=== PATIENT | female | born 1990 | race Caucasian/White ===

== ENCOUNTER 2018-02-13 08:19 | Emergency (ER) | payer OTHER ==
[2018-02-13 09:34] LABS: BHCG - Serum Negative (NEGATIVE); Pregs Control Background? CLEAR/WHITE (CLR/WHITE); Pregs Control Bar Appear? YES (CONTROL BAR)
[2018-02-13] MEDS ORDERED: Ketorolac Tromethamine 60 MG/2 ML VIAL ONE (10:00)
--- NOTE | 2018-02-13 10:16 | CT ---
CERVICAL SPINE CT NONCONTRAST: Date: 02/13/18 INDICATION: Post-traumatic pain. FINDINGS: Craniocervical junction is intact. There is no compression fracture or subluxation. No osseous compro mise of vertebral canal. IMPRESSION: No acute osseous abnormality of the cervical spine. POS: HERB
--- NOTE | 2018-02-13 10:27 | CT ---
LUMBAR SPINE CT NONCONTRAST: Date: 02/13/18 INDICATION: Post-traumatic injury, pain. FINDINGS: There is no evidence of compression fracture or subluxation. Spinal alignment is maintained. Focal sc lerosis is seen at the anterior, superior T12 vertebral segment. IMPRESSION: No acute osseous abnormality of lumbar spine. POS: EDDIE
== END 2018-02-13 10:27 | disposition home or self-care (01) ==
LOC: ERS 08:19
DX: S13.9XXA Sprain of joints and ligaments of unspecified parts of neck, initial encounter (principal); S33.5XXA Sprain of ligaments of lumbar spine, initial encounter; F41.9 Anxiety disorder, unspecified; F32.9 Major depressive disorder, single episode, unspecified; F17.210 Nicotine dependence, cigarettes, uncomplicated; V89.2XXA Person injured in unspecified motor-vehicle accident, traffic, initial encounter
CPT/HCPCS: 36415; 72125; 72131; 84703; 96372; J1885

== ENCOUNTER 2018-10-18 03:53 | Day surgery (SDC) | payer OTHER ==
[2018-10-18 04:28] VITALS: BP 124/69; TEMP 98.9; BMI 34.0
[2018-10-18] MEDS ORDERED: hydrALAZINE 20 MG/ML VIAL SLOW IVP PRN (05:08)
--- NOTE | 2018-10-18 06:06 | PRG ---
DATE OF SERVICE: 10/18/2018 PRIMARY OB: Alfredo Green MD CHIEF COMPLAINT: Bleeding. HISTORY OF PRESENT ILLNESS: The patient is a 28-year-old, G2, P1 female with an intrauterine at 29 weeks gestation, who presents to Labor and Delivery after experiencing a couple of episodes of bleeding in the toilet. The patient initially yesterday afternoon thought that it was hemorrhoids and did not cause any concern to her. The patient reports that she had 4 formed bowel movements yesterday. She had bleeding again early this morning and became concerned that it may be coming vaginally. She denies any uterine contractions, any other change in discharge. She does report intercourse in the last 24 hours. She had her first bleeding episode prior to it. The patient denies any history of hemorrhoids or rectal bleeding. She is taking clindamycin currently for an ear infection; however, denies any diarrhea. The patient reports occasional contractions that she calls [place]. Denies any other obstetric complaints. The patient denies any recent illness, fever, fall, cough, headache, chest pain, shortness of breath, significant nausea, vomiting, diarrhea, or constipation. Denies new rashes, hip problems, knee problems, muscle weakness, change in discharge, urinary urgency or frequency. PAST MEDICAL HISTORY: 1. Genital herpes. 2. Anxiety and depression. PAST SURGICAL HISTORY: Negative. SOCIAL HISTORY: The patient is a former smoker, quit before the was diagnosed. ALLERGIES: PENICILLIN AND SULFA. CURRENT MEDICATIONS: Prozac 40 mg daily. OB LABS: Unavailable at the time of dictation. REVIEW OF SYSTEMS: Per HPI. PHYSICAL EXAMINATION: VITAL SIGNS: Blood pressure 117/67, heart rate of 72, respiratory rate 18, saturating 98% on room air, temperature 98.9. GENERAL: She appears to be in no acute distress. She is alert, oriented, cooperative, and pleasant to interact with. HEAD: Normocephalic, atraumatic. LUNGS: Clear to auscultation bilaterally. HEART: Has a regular rate and rhythm. ABDOMEN: Soft, gravid, nontender to palpation. EXTREMITIES: Nontender, nonedematous. : Vulva without masses, lesions, or erythema. Vagina is moist with a smooth discharge, nonodorous. Cervix is visibly closed. No evidence of bleeding. No discoloration. No bleeding up in her vestibular region or around her urethra. No blood visible around her anus. No hemorrhoids or erythema or other lesions noted. heart tracing shows a baseline in the 120s with moderate long-term variability, positive accelerations. Baby does have dips into the one teens, one prominent one down into the 100s. Tocometer showing occasional possible contractions, not felt by the patient. VP3 pending. ASSESSMENT AND PLAN: The patient is a 28-year-old G2, P1 female with an intrauterine at 29 weeks gestation, presenting for what she thought was vaginal bleeding. Bleeding is isolated and does not appear to be persistent. There is no evidence of vaginal bleeding. This bleeding may be associated with internal hemorrhoids as she has had multiple bowel movements yesterday. She denies any diarrhea. We did talk some about C difficile as the patient is on clindamycin and increased risk for that particular infection. The patient has been counseled should she started experiencing diarrhea, to contact her doctor. Also if the bleeding persists, the patient needs to notify her doctor as well. As of this moment, there does not appear to be any warranted intervention. The fetus has had a deceleration that has warranted me keeping her on the monitor longer. It may have been a break in her heart tracing to maternal heart rate, it may be a wandering baseline at that period of time. We will keep her on for another 20 to 30 minutes, should she persist or have repetitive decelerations, we will keep her for prolonged monitoring. Addendum: continued monitoring was reassuring. Pt requesting to go home. She has be discharged with precautions. Job ID: [id number] [facility]
== END 2018-10-18 05:45 | disposition home or self-care (01) ==
LOC: L&D/OP 03:53
PROVIDERS: ATTEND Obstetrics & Gynecology
DX: O99.89 Other specified diseases and conditions complicating pregnancy, childbirth and the puerperium (principal); N89.8 Other specified noninflammatory disorders of vagina; O99.343 Other mental disorders complicating pregnancy, third trimester; F41.8 Other specified anxiety disorders; F32.9 Major depressive disorder, single episode, unspecified; Z3A.29 29 weeks gestation of pregnancy; Z79.899 Other long term (current) drug therapy; Z87.891 Personal history of nicotine dependence; Z88.0 Allergy status to penicillin; Z88.2 Allergy status to sulfonamides
CPT/HCPCS: 87480; 87510; 87660; 99283

== ENCOUNTER 2018-11-30 10:37 | Day surgery (SDC) | payer OTHER ==
[2018-11-30 11:06] VITALS: BMI 34.0
[2018-12-01] MEDS ORDERED: hydrALAZINE 20 MG/ML VIAL SLOW IVP PRN ×2 (00:36→00:37)
--- NOTE | 2018-12-01 01:11 | PRG ---
DATE OF SERVICE: 11/30/2018 PRIMARY PRODUCTION MATERIAL COORDINATOR: Alfredo Green MD CHIEF COMPLAINT: Fall. HISTORY OF PRESENT ILLNESS: The patient is a 28-year-old G2, P1 female with an intrauterine at 35 weeks and a day, who presented to Labor and Delivery this morning after having a fall onto her bottom. The patient reports that she was attempting to sit on a swing, at which time, her puppies had pushed the swing out of the way and she landed onto the ground. She denies any abdominal trauma. She denies any pain at the time of evaluation. She does report she had some lower back pain at the time of the fall. She denies vaginal bleeding or leakage of fluid. She denies uterine contractions. The patient denies any illness, fever, headache, chest pain, shortness of breath, nausea, vomiting, diarrhea, constipation, hip problems, knee problems, muscle weakness, any new rashes, vaginal bleeding, or leakage of fluid, any urinary urgency or frequency. PAST MEDICAL HISTORY: Genital herpes, anxiety, depression, and migraines PAST SURGICAL HISTORY: Negative. SOCIAL HISTORY: She is a former smoker. Denies drug or alcohol use. ALLERGIES: PENICILLIN AND SULFA DRUGS. CURRENT MEDICATIONS: Prozac 40 mg a day. OB LABS: Unavailable at time of dictation. REVIEW OF SYSTEMS: Per HPI. PHYSICAL EXAMINATION: VITAL SIGNS: Blood pressure 123/80, heart rate of 99, respiratory rate of 16, temperature 98.6. GENERAL: She appears to be in no acute distress. She is alert, oriented, cooperative, pleasant to interact with. HEAD: Normocephalic, atraumatic. LUNGS: Clear to auscultation bilaterally. HEART: Has regular rate and rhythm. ABDOMEN: Nontender, gravid and obese. EXTREMITIES: Nontender, nonedematous. She does have some mild tenderness to palpation in her paravertebral region. heart tracing shows a baseline in the 120s with moderate long-term variability, positive 15 x 15 accelerations, no decelerations. Some irritability seen on the monitor, but no consistent pattern and not felt by the patient. ASSESSMENT AND PLAN: The patient is a 28-year-old G2, P1 female with an intrauterine at 35 weeks and 1 day, presenting after a fall from a near seated position to the ground. Denies any abdominal trauma. The patient has been given reassurance. There is no evidence of abruption or labor at this time given the low impact of her fall and I do not believe there is a need for her to be monitored for more than she has been at this time. She is 3 hours plus out from the incident and has no evidence concerning at this time. The patient has a reactive NST and category 1 tracing. She has been given labor precautions and is being discharged to home. Job ID: [id number]
== END 2018-11-30 12:52 | disposition home health service (06) ==
LOC: L&D/OP 10:37
PROVIDERS: ATTEND Obstetrics & Gynecology
DX: O99.89 Other specified diseases and conditions complicating pregnancy, childbirth and the puerperium (principal); M54.5 Low back pain; O99.343 Other mental disorders complicating pregnancy, third trimester; F41.8 Other specified anxiety disorders; F32.9 Major depressive disorder, single episode, unspecified; Z3A.35 35 weeks gestation of pregnancy; Z79.899 Other long term (current) drug therapy; Z88.0 Allergy status to penicillin; Z88.2 Allergy status to sulfonamides; Z87.891 Personal history of nicotine dependence; W09.1XXA Fall from playground swing, initial encounter
CPT/HCPCS: 99282

== ENCOUNTER 2018-12-19 05:58 | Inpatient (IN) | payer OTHER ==
[2018-12-19] MEDS ORDERED: Lactated Ringer's 1,000 ML IV SCH (06:21)
[2018-12-19] MEDS ORDERED: HYDROcodone/Acetaminophen 5/325 mg Tablet PO PRN ×4 (06:21→18:19)
[2018-12-19] MEDS ORDERED: Butorphanol Tartrate 1 MG/ML VIAL SLOW IVP PRN (06:21)
[2018-12-19] MEDS ORDERED: Ondansetron PF 4 MG/2 ML Vial IVP PRN ×3 (06:21→18:19)
[2018-12-19] MEDS ORDERED: Ibuprofen 800 MG TAB PO PRN (06:21)
[2018-12-19] MEDS ORDERED: Lidocaine 1% (PF) 30 ML VIAL SC PRN (06:21)
[2018-12-19] MEDS ORDERED: NS / Oxytocin 40 units/1000ml 1,000 ML IV PRN (06:21)
[2018-12-19] MEDS ORDERED: NS w/ Oxytocin 10 units 500 ML IV SCH (06:21)
[2018-12-19] MEDS ORDERED: Promethazine HCl 25 MG/ML VIAL IM PRN ×3 (06:21→18:19)
[2018-12-19] MEDS ORDERED: hydrALAZINE 20 MG/ML VIAL SLOW IVP PRN ×2 (06:21→18:19)
[2018-12-19 06:32] VITALS: BMI 35.6
[2018-12-19] MEDS ORDERED: FLU VACC QS2019-20(6MOS UP)/PF 60 MCG/0.5 ML SYRINGE IM ONE (06:45)
[2018-12-19 07:07] LABS: Hemoglobin 9.8 g/dL (12.0-16.0); Mean Corpuscular HGB CONC 33.5 g/dL (32.0-36.0); Mean Corpuscular Hemoglobin 24.7 pg (27.0-31.0); Mean Corpuscular Volume 73.6 fL (78.0-98.0); Mean Platelet Volume 8.2 fL (7.4-10.4); Platelet Count 259 thou/uL (130-400); RBC Distribution Width 13.9 % (11.5-14.5); Red Blood Cell (RBC) Count 3.98 mill/uL (4.20-5.40); White Blood Cell (WBC) Count 10.8 thou/uL (4.8-10.8)
[2018-12-19 07:19] LABS: ALT (SGPT) 7 U/L (8-55); AST (SGOT) 13 U/L (5-34); Albumin 3.2 g/dL (3.5-5.0); Alkaline Phosphatase 145 U/L (40-110); Anion Gap 12 mmol/L (10-20); BUN (Urea Nitrogen) 5 mg/dL (7.0-18.7); Bilirubin, Total 0.5 mg/dL (0.2-1.2); Calc. Creatinine Clearance 217 mL/min (70-130); Calcium 8.4 mg/dL (7.8-10.44); Carbon Dioxide 21 mmol/L (22-29); Chloride 106 mmol/L (98-107); Estimated GFR-MDRD Greater than 90; Globulin 3.1 g/dL (2.4-3.5); Glucose 80 mg/dL (70-105); Potassium 3.9 mmol/L (3.5-5.1); Protein, Total 6.3 g/dL (6.0-8.3); Sodium 135 mmol/L (136-145)
[2018-12-19] MEDS ORDERED: Misoprostol 100 MCG TAB VAG SCH (08:00)
[2018-12-19] MEDS ORDERED: Fentanyl 4 mcg/Bup 0.1% Cadd 100 ML ONE (08:46)
[2018-12-19 09:16] LABS: Syphilis Antibody Nonreactive (Nonreactive); Syphilis Antibody Index 0.06 S/CO (<1.00 Non-Reactive)
[2018-12-19 09:17] LABS: HBCM Index 0.09 S/CO (0-0.79); HIV (1/2) Antibody/Antigen Non-Reactive (NonReactive); HIV 1/2 INDEX 0.06 S/CO (<1.00); Hepatitis B Core IgM Abs Non-Reactive (NonReactive)
[2018-12-19] MEDS: Lactated Ringer's 1,000 ML IV SCH ×2 (10:18→11:13)
[2018-12-19] MEDS ORDERED: diphenhydrAMINE 50 MG/ML VIAL IVP PRN (10:25)
[2018-12-19] MEDS ORDERED: Acetaminophen 325 MG TAB PO PRN (10:25)
[2018-12-19] MEDS ORDERED: Naloxone HCl 0.4 mg/ml Vial IVP PRN ×2 (10:25)
[2018-12-19] MEDS ORDERED: ePHEDrine/0.9% NaCl/PF SYRINGE 50 mg/10 ml SLOW IVP PRN (10:25)
[2018-12-19] MEDS ORDERED: Lactated Ringer's 500 ML IV PRN (10:25)
[2018-12-19] MEDS ORDERED: Fentanyl 4 mcg/Bupivacaine 0.1% Cassette 100 ML EPIDURAL SCH (10:30)
[2018-12-19] MEDS ORDERED: Communication Order-Pharmacy FS SCH (10:30)
--- NOTE | 2018-12-19 15:10 | PDOC.OPDEL ---
OB Operative/Delivery Note Delivery Dr/Surgeon: YING BANSAL Pre-Delivery Diagnosis: medically indicated induction (Gest htn 37 wk) Procedure/Post Delivery Dx: spontaneous vaginal delivery Weeks gestation: 37 Anesthesia: epidural - Findings A Sex: female Weight: 0 oz (pending @ delivery 1500) - 1 min: 8 - 5 min: 9 - Additional Findings/Plan Placenta delivered: spontaneous Repaired Obstetrical Laceration: none Estimated blood loss: <250 Compilations/Other Findings: 1500 nuchal cord x 1. no repair correct count Post delivery plan: routine recovery
[2018-12-19] MEDS ORDERED: diphenhydrAMINE 25 MG CAP PO PRN (18:19)
[2018-12-19] MEDS ORDERED: Zolpidem Tartrate 5 MG TAB PO PRN (18:19)
[2018-12-19] MEDS ORDERED: Bisacodyl 10 MG SUPP PR PRN (18:19)
[2018-12-19] MEDS ORDERED: Benzocaine-Menthol 82.5 ML CAN TOP PRN (18:19)
[2018-12-19] MEDS ORDERED: NS / Oxytocin 40 units/1000ml 1,000 ML IV SCH (18:19)
[2018-12-19] MEDS ORDERED: Preparation H Ointment 28 GM TUBE PR PRN (18:19)
[2018-12-19] MEDS ORDERED: Lanolin Ointment 7 GM TUBE TOP PRN (18:19)
[2018-12-19] MEDS ORDERED: Milk Of Magnesia 30 ML UDCUP PO PRN (18:19)
[2018-12-19] MEDS: Ibuprofen 800 MG TAB PO SCH (21:17)
[2018-12-19] MEDS: Docusate Calcium (SURFAK) 240 MG CAP PO SCH (21:17)
[2018-12-20] MEDS: Ibuprofen 800 MG TAB PO SCH ×2 (04:56→13:38)
[2018-12-20] MEDS ORDERED: Adacel (T-DAP) 0.5 ML SYRINGE IM ONE (09:00)
[2018-12-20] MEDS ORDERED: Prenatal Vitamin 1 TAB PO SCH (09:00)
[2018-12-20] MEDS: Ferrous Sulfate 325 MG TAB PO SCH ×2 (09:21→17:20)
[2018-12-20] MEDS: Docusate Calcium (SURFAK) 240 MG CAP PO SCH (09:22)
[2018-12-20] MEDS ORDERED: FLU VACC QS2019-20(6MOS UP)/PF 60 MCG/0.5 ML SYRINGE IM ONE (09:30)
[2018-12-20 12:33] VITALS: BP 134/86; TEMP 97.6
== END 2018-12-20 17:50 | disposition home or self-care (01) | DRG 806 ==
LOC: L&D 05:58 → 3SW 18:39
PROVIDERS: ADMIT Obstetrics & Gynecology; ATTEND Obstetrics & Gynecology
PROC: 10E0XZZ Delivery of Products of Conception, External Approach (ICD-10-PCS; principal; 2018-12-19)
PROC: 10907ZC Drainage of Amniotic Fluid, Therapeutic from Products of Conception, Via Natural or Artificial Opening (ICD-10-PCS; 2018-12-19)
PROC: 3E033VJ Introduction of Other Hormone into Peripheral Vein, Percutaneous Approach (ICD-10-PCS; 2018-12-19)
PROC: 3E02340 Introduction of Influenza Vaccine into Muscle, Percutaneous Approach (ICD-10-PCS; 2018-12-19)
DX: O13.4 Gestational [pregnancy-induced] hypertension without significant proteinuria, complicating childbirth (principal); O98.52 Other viral diseases complicating childbirth; Z37.0 Single live birth; Z3A.37 37 weeks gestation of pregnancy; B00.9 Herpesviral infection, unspecified; Z79.899 Other long term (current) drug therapy; O69.81X0 Labor and delivery complicated by cord around neck, without compression, not applicable or unspecified; Z23 Encounter for immunization
CPT/HCPCS: 36415; 51702; 80053; 81003; 85027; 86705; 86780; 86850; 86900; 86901; 87389; 90471; 90686; G0008; J2001; J2590

== ENCOUNTER 2019-02-12 06:41 | Day surgery (SDC) | payer OTHER ==
[2019-02-11 10:20] VITALS: BMI 32.1
[2019-02-11 12:02] LABS: Hemoglobin 11.7 g/dL (12.0-16.0); Mean Corpuscular HGB CONC 30.9 g/dL (32.0-36.0); Mean Corpuscular Hemoglobin 23.9 pg (27.0-31.0); Mean Corpuscular Volume 77.5 fL (78.0-98.0); Mean Platelet Volume 8.7 fL (7.4-10.4); Platelet Count 314 thou/uL (130-400); RBC Distribution Width 17.5 % (11.5-14.5); Red Blood Cell (RBC) Count 4.91 mill/uL (4.20-5.40)
[2019-02-11 12:47] LABS: BHCG - Serum Negative (NEGATIVE); Pregs Control Background? CLEAR/WHITE (CLR/WHITE); Pregs Control Bar Appear? YES (CONTROL BAR)
--- NOTE | 2019-02-12 07:16 | HP ---
SCHEDULED PROCEDURE: Incision of right labial lipoma. HISTORY OF PRESENT ILLNESS: Ms Cabrera is a 28-year-old G2, P2, who delivered in December. She has a persistent right labial pedunculated lipoma for excision. 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 Positive history of depression on Prozac. PAST MEDICAL HISTORY: Depression. PAST SURGICAL HISTORY: None. ALLERGIES: NONE. MEDICATIONS: 1. Prozac. 2. . 3. Valtrex. ALLERGIES: INCLUDE PENICILLINS AND SULFA. SOCIAL HISTORY: Positive tobacco use history. Denies alcohol or IV drug use. FAMILY HISTORY: Noncontributory. REVIEW OF SYSTEMS: Noncontributory. PHYSICAL EXAMINATION: GENERAL: White female, in no acute distress. HEENT: Within normal limits. LUNGS: Clear to auscultation bilaterally. HEART: Regular rhythm. BREASTS: No masses bilaterally. ABDOMEN: Soft, nontender. No rebound or guarding. VULVA: The patient has an area that has a large skin tag or lipoma on the right labia. It is nontender, is not ulcerated. There are no lymph node enlargement. The vagina is without discharge. Cervix is parous. Uterus is anteverted six week size. Adnexa, no masses. IMPRESSION: Right labial lipoma. Planned excision with appropriate antibiotic and DVT prophylaxis. Job ID: [id number]
[2019-02-12] MEDS ORDERED: Lidocaine 1% w/Epinephrine 1:100K 20 ML VIAL ONE (08:19)
[2019-02-12] MEDS ORDERED: Fentanyl 100 MCG/2 ML VIAL ONE (08:36)
[2019-02-12] MEDS ORDERED: D5W IVPB SCH ×3 (08:45→09:00)
[2019-02-12] MEDS ORDERED: ADMIXTURE FEE IVPB SCH (08:45)
[2019-02-12] MEDS ORDERED: CIPROFLOXACIN LACTATE IVPB SCH ×3 (08:45→09:00)
[2019-02-12] MEDS ORDERED: [UNRECOGNIZED DRUG - OTHER] IVPB SCH (09:00)
[2019-02-12] MEDS ORDERED: Lidocaine 1% PF 5 ML VIAL ONE (09:39)
[2019-02-12] MEDS ORDERED: PROPOFOL 200 MG/20 ML VIAL ONE (09:39)
[2019-02-12] MEDS ORDERED: Ondansetron PF 4 MG/2 ML Vial ONE (09:39)
--- NOTE | 2019-02-12 10:24 | OP ---
DATE OF PROCEDURE: 02/12/2019 PREOPERATIVE DIAGNOSIS: Right labial mass consistent with lipoma. POSTOPERATIVE DIAGNOSIS: Right labial mass consistent with lipoma. PROCEDURES PERFORMED: Excision of right labial mass. SPECIMEN REMOVED: Right labial mass, sent for pathology. ESTIMATED BLOOD LOSS: Less than 10 mL. COMPLICATIONS: None. MEDICATIONS: Cipro, IV piggyback preoperatively. CRITICAL CARE SPECIALIST: Yasir Yee MS-3 ANESTHESIA: LMA. ANESTHESIOLOGIST: Lora Solorzano CRNA OPERATIVE FINDINGS: 1. Approximately 12 to 15 mm pedunculated right labial mass excised. 2. Hemostasis with good reapproximation and correct counts postoperatively. DISPOSITION: Recovery room in good condition. DESCRIPTION OF PROCEDURE: After obtaining appropriate informed consent, the patient was taken to the operating room, where LMA was achieved without difficulty. She was prepped and draped in the usual manner. Bladder was drained of clear urine. Mass was noted to be at approximately 8 o'clock on the right labia majora. It was then infiltrated underneath using lidocaine with epinephrine. An elliptical incision following the lines of Langerhans was used to excise the mass with adequate margins. It was excised down to the level of the dermis and sent for pathologic analysis. Hemostasis was achieved using Bovie cautery, and the skin was then reapproximated using a 4-0 Monocryl subcuticular stitch and Dermabond. Lidocaine and epinephrine were used for local anesthetic and the patient was awakened, LMA removed, and taken to recovery room in good condition. Job ID: [id number]
== END 2019-02-12 11:45 | disposition home or self-care (01) ==
LOC: SDC 06:41
PROVIDERS: ATTEND Obstetrics & Gynecology
PROC: 0UBMXZZ Excision of Vulva, External Approach (ICD-10-PCS; principal; 2019-02-12)
DX: D28.0 Benign neoplasm of vulva (principal); F32.9 Major depressive disorder, single episode, unspecified; Z79.899 Other long term (current) drug therapy; Z88.0 Allergy status to penicillin; Z88.2 Allergy status to sulfonamides
CPT/HCPCS: 84703; 85027; 86850; 86900; 86901; 88305; J0744; J2001; J2405; J2704; J3010